=== PATIENT | male | born 1945 | race African-American/Black ===

== ENCOUNTER 2016-11-16 04:35 | Inpatient (IN) ==
[2016-11-09 09:07] LABS: MANUAL DIFF NEEDED? NO
[2016-11-09 09:12] LABS: BASO% 0.1 % (0.0-0.8); EOS# 0.09 X1000 (0.0-0.7); EOS% 1.1 % (0.0-10.0); HEMATOCRIT 47.9 % (42.0-52.0); HEMOGLOBIN 16.7 g/dL (14.0-18.0); IMM GRAN# 0.02 X1000 (0.0-0.04); IMM GRAN% 0.3 % (0.0-0.5); LYMPH# 1.04 X1000 (1.2-3.4); MCH 31.8 PG (27-31); MCHC 34.9 g/dL (33-37); MCV 91.2 FL (81-99); MONO# 0.78 X1000 (0.11-0.59); MONO% 9.8 % (1.7-9.3); MPV 9.9 FL (7.4-10.4); NEUT% 75.7 % (42.2-75.2); PLT 202 X1000 (130-400); RBC 5.25 XMIL (4.7-6.1)
[2016-11-09 09:26] LABS: INR 1.39; PROTIME 14.9 Seconds (9.2-11.7)
[2016-11-09 09:28] LABS: PTT 40.9 Seconds (22.0-36.0)
[2016-11-09 09:30] LABS: BUN 13 mg/dL (8-22); TCO2 30 mmol/L (25-35)
[2016-11-09 09:42] LABS: CHLORIDE 100 mmol/L (98-107); POTASSIUM 5.1 mmol/L (3.5-5.1); SODIUM 141 mmol/L (136-145)
[2016-11-09 09:49] LABS: AGAP 11; COSMO 282
--- NOTE | 2016-11-09 11:48 | EKG Report ---
Test Performed on : 11/09/2016 08:22:05 AM Test Reason : ORDER Blood Pressure : / mmHG Vent. Rate : 078 BPM Atrial Rate : 241 BPM P-R Int : 000 ms QRS Dur : 090 ms QT Int : 366 ms P-R-T Axes : 000 069 030 degrees QTc Int : 417 ms Atrial fibrillation. Abnormal ECG When compared with ECG of 13-SEP-2013 14:24, No significant change was found Confirmed by Froylan MERCADO, Yaw Hunt ([id number]) on 11/09/2016 2:56:23 PM
[2016-11-16] MEDS ORDERED: LYRICA ONE (09:34)
[2016-11-16] MEDS ORDERED: REGLAN ONE (09:34)
[2016-11-16] MEDS ORDERED: PEPCID ONE (09:34)
[2016-11-16] MEDS ORDERED: COLACE ONE (09:34)
[2016-11-16] MEDS ORDERED: LR 1,000 ML ONE (09:35)
[2016-11-16] MEDS ORDERED: CELEBREX ONE (09:35)
[2016-11-16] MEDS ORDERED: KEFZOL 2 GM/D5W 2 GM/50 ML IVPB ONE (09:35)
[2016-11-16] MEDS ORDERED: DIPRIVAN 1% ONE ×2 (11:54→13:42)
[2016-11-16] MEDS ORDERED: VERSED ONE (12:16)
[2016-11-16] MEDS ORDERED: FENTANYL ONE (12:17)
[2016-11-16] MEDS ORDERED: DECADRON ONE (12:39)
[2016-11-16] MEDS ORDERED: ZOFRAN ONE (12:39)
[2016-11-16] MEDS ORDERED: OFIRMEV 1000 MG/ISOTONIC SOLN 1,000 MG/100 ML BOTTLE ONE (12:39)
[2016-11-16 14:27] LABS: URINE CULTURE NEEDED? NO; URINE MICRO REVIEW NEEDED? NO; URINE SOURCE CATH
[2016-11-16 14:32] LABS: BILIRUBIN URINE NEGATIVE (NEGATIVE); BLOOD URINE NEGATIVE (NEGATIVE); COLOR YELLOW; GLUCOSE URINE NEGATIVE (NEGATIVE); LEUKOCYTES URINE NEGATIVE (NEGATIVE); NITRITE URINE NEGATIVE (NEGATIVE); PROTEIN URINE NEGATIVE (NEGATIVE); SP GRAVITY URINE 1.018; TURBIDITY URINE CLEAR (CLEAR); UR EPITHELIAL CELLS <10 /HPF (<10); URINE BACTERIA NEGATIVE /HPF; URINE RBC <10 /HPF (<10); URINE WBC <10 /HPF (<10); UROBILINOGEN URINE NORMAL (NORMAL)
[2016-11-16] MEDS ORDERED: NEOSPORIN G.U. IRRIGANT ONE (15:24)
[2016-11-16] MEDS ORDERED: CYKLOKAPRON 1,000 MG/NS 1,000 MG/100 ML IVPB ONE ×2 (15:24→15:25)
[2016-11-16] MEDS ORDERED: MARCAINE 0.25% PF/EPI 1:200,000 ONE (15:24)
[2016-11-16] MEDS ORDERED: VANCOMYCIN ONE (15:24)
[2016-11-16] MEDS ORDERED: SODIUM CHLORIDE 0.9% ONE (15:24)
[2016-11-16] MEDS ORDERED: DURAMORPH ONE (15:24)
[2016-11-16] MEDS ORDERED: TORADOL ONE (15:24)
[2016-11-16] MEDS ORDERED: EXPAREL 1.3% ONE (15:24)
[2016-11-16] MEDS ORDERED: MORPHINE IV PRN (16:41)
[2016-11-16] MEDS ORDERED: ZOFRAN PO PRN (16:45)
[2016-11-16] MEDS ORDERED: MILK OF MAGNESIA PO PRN (16:45)
--- NOTE | 2016-11-16 18:20 | Diag Imaging Result Doc PS360 ---
KNEE 1-2 VIEWS-RIGHT - 11/16/2016 INDICATION: right total knee TECHNIQUE: Two views COMPARISON: None FINDINGS: There is a right total knee arthroplasty. Alignment is anatomic. No hardware fracture or loosening. IMPRESSION: No complication. Electronically signed by Jamey Hernandez 11/16/2016 6:18 PM
[2016-11-16] MEDS: NS 1,000 ML IV SCH (19:02)
[2016-11-16] MEDS: TYLENOL PO SCH ×2 (19:03→23:02)
[2016-11-16] MEDS: KEFZOL 2 GM/D5W 2 GM/50 ML IVPB IV SCH (19:59)
[2016-11-16] MEDS: PERIDEX MT SCH (20:00)
[2016-11-16] MEDS: CARDIZEM CD PO SCH (20:00)
[2016-11-16] MEDS: COLACE PO SCH (20:00)
[2016-11-17] MEDS: OXY IR PO PRN ×3 (01:41→20:57)
[2016-11-17] MEDS: NS 1,000 ML IV SCH (04:00)
--- NOTE | 2016-11-17 04:21 | OPERATIVE NOTE ---
PROCEDURE DATE: 11/16/2016 PREOPERATIVE DIAGNOSIS: Degenerative arthritis of the right knee. POSTOPERATIVE DIAGNOSIS: Degenerative arthritis of the right knee. PROCEDURE: Right total knee arthroplasty with a DePuy Attune size 5 posterior stabilized femur, a size 6 tibial tray, a 6 mm rotating platform tibial insert, and a 35 mm medialized anatomic patella. SURGEON: Curt Ashraf MD BIBLE WORKER: BRANDEN Owens [employer] PORTAL DEVELOPER: BRANDEN Chawla ANESTHESIA: Spinal IV FLUIDS: 2900 mL of lactated Ringer's. ESTIMATED BLOOD LOSS: 50 mL. TOURNIQUET TIME: 100 minutes at 350 mmHg. COMPLICATION: None INDICATION: This is a 71-year-old male with chronic history of worsening pain and discomfort of his right knee with continued pain and discomfort despite appropriate nonoperative treatment. X- rays revealed significant degenerative arthritis. Recommendation to proceed with right total knee arthroplasty was offered. Risks and benefits of surgery were explained, including the risks of anesthesia, , bleeding, infection, failure to relieve pain, postoperative stiffness, nerve injury, blood clots, and other imponderables. All questions were answered. The patient and family wished to proceed with surgery. DETAILS OF OPERATION: The patient was taken to the operating room, placed supinely on the operating table. Once adequate anesthesia was obtained, patient's right lower extremity was subsequently prepped and draped in the usual sterile fashion. Esmarch was used to exsanguinate the right lower extremity. The tourniquet was inflated to 350 mmHg. A standard anterior incision made with a skin knife. Medial and lateral skin envelopes were developed. Standard medial parapatellar arthrotomy was then performed. Patella fat pad was excised. Superior tractors then placed. Approximately 1 cm anterior to the PCL insertion, a starting reamer was passed. An intramedullary guide with a distal femoral cutting block was pinned in position. Distal femoral cut was then performed. The sizing block was placed and measured size 5. Corresponding pins were placed. Anterior, posterior, and chamfer cuts were then made. Attention was then turned to the proximal tibia. Further resection of the ACL and PCL was performed. Using the extramedullary guide, the proximal tibia cutting block was pinned in position. Had good alignment confirmed with the alignment alina. The proximal tibia was then resected. Medial and lateral menisci were excised. A curved osteotome was used to remove the posterior osteophytes off the distal femur. A spacer block was placed and had good soft tissue balance in both flexion and extension. A spacer block was placed and had good soft tissue balance in both flexion and extension. Attention was then turned to the proximal tibia where the size 6 tibial tray appeared be correct size. This was pinned in position. This followed by a central reamer and a fin punch. A box cutting guide was placed on the distal femur. A box cut was performed. A trial femoral component was then placed and had good soft tissue balancing with the tibial insert. The patella had been the everted and resected in standard fashion. A 35 appeared to be the correct size. The holes were drilled. The patella had good patellofemoral tracking. The components were then removed. Copious irrigation was then performed with antibiotic pulsatile lavage while vancomycin was mixed with cement on the back table. Sequential cementing was then performed, first with the tibial tray. Excess cement was removed with a Hewitt, followed by the femoral component. Excess cement with a Hewitt, followed by the trial tibial insert in full extension. Axial loading was maintained while cement cured. Patella was cemented in standard fashion. Patella clamp was placed. Exparel was placed in deep soft tissue, as well subcutaneous tissue while the cement was curing. After the cement had cured, the 6 mm rotating platform tibial insert appeared to be the correct size. The trial insert was removed. Exparel was placed in the deep posterior capsule. The wound was copiously irrigated with antibiotic pulsatile lavage and this was followed by a 6 mm rotating platform tibial insert. Had good soft tissue balance and good patellofemoral tracking. A 1/8 Hemovac drain was placed and was not sewn in. Copious irrigation was then performed once again with antibiotic pulsatile lavage. Number 1 Vicryl was used to repair the arthrotomy, followed by 2-0 Vicryl to repair the subcutaneous tissue, and skin hayley. Adaptic, sterile 4 x 4, Webril, cryounit, and Ladarius wrap was applied to the right lower extremity. The patient tolerated the procedure well with no complications. Transferred to recovery room in stable condition. cc: Curt Ashraf MD MTDMargie
[2016-11-17] MEDS: TYLENOL PO SCH ×4 (05:53→23:28)
[2016-11-17] MEDS: KEFZOL 2 GM/D5W 2 GM/50 ML IVPB IV SCH (05:54)
[2016-11-17 06:25] LABS: HEMATOCRIT 41.9 % (42.0-52.0); HEMOGLOBIN 14.7 g/dL (14.0-18.0)
[2016-11-17 06:48] LABS: AGAP 12; BUN 12 mg/dL (8-22); CALCIUM 8.6 mg/dL (8.8-10.2); CHLORIDE 103 mmol/L (98-107); COSMO 275; POTASSIUM 4.8 mmol/L (3.5-5.1); SODIUM 137 mmol/L (136-145); TCO2 22 mmol/L (25-35)
--- NOTE | 2016-11-17 07:36 | PROGRESS NOTE ---
DATE: 11/17/2016 SUBJECTIVE: Patient is a pleasant, 71-year-old male who is 1 day status post right total knee arthroplasty. The patient is currently resting comfortably. PHYSICAL EXAMINATION: Patient is awake, alert, and cooperative with the exam. Right lower extremity dressing is intact. Calf is soft. He is neurovascularly distally. He has active dorsiflexion and plantarflexion. LABORATORY DATA: His hemoglobin and hematocrit are pending. IMPRESSIONS: Postoperative day #1 status post right total knee arthroplasty. PLAN: At this point, discontinue his drain and Richards, and change his dressing and Hep-Lock his IV. We will mobilize with physical therapy. care services manager have been consulted for discharge planning. cc: Curt Ashraf MD
[2016-11-17] MEDS: XARELTO PO SCH (08:37)
[2016-11-17] MEDS: BENICAR PO SCH (08:38)
[2016-11-17] MEDS: CARDIZEM CD PO SCH (08:38)
[2016-11-17] MEDS: HYDROCHLOROTHIAZIDE PO SCH (08:38)
[2016-11-17] MEDS: ALDACTONE PO SCH (08:38)
[2016-11-17] MEDS: COLACE PO SCH ×2 (08:38→20:54)
[2016-11-17] MEDS: LANOXIN PO SCH (08:39)
[2016-11-17] MEDS: PEPCID PO SCH (08:39)
[2016-11-17] MEDS: PERIDEX MT SCH ×2 (12:04→20:54)
[2016-11-18] MEDS: CARDIZEM CD PO SCH ×2 (01:34→09:08)
[2016-11-18] MEDS: TYLENOL PO SCH (06:03)
[2016-11-18 06:10] LABS: HEMATOCRIT 38.8 % (42.0-52.0); HEMOGLOBIN 13.6 g/dL (14.0-18.0)
[2016-11-18] MEDS ORDERED: BACITRACIN OINTMENT TOP PRN (06:34)
[2016-11-18 07:23] VITALS: BP 109/75
--- NOTE | 2016-11-18 07:49 | PROGRESS NOTE ---
DATE: 11/18/2016 SUBJECTIVE: The patient is a pleasant 71-year-old male who is 2 days status post right total knee arthroplasty. He is currently resting comfortably. He has no complaints. OBJECTIVE: On physical examination, the patient's right lower extremity wound looks good. There are no signs or symptoms of infection. He has expected swelling. Compartments are soft. He is neurovascularly distally. He has active dorsiflexion and plantar flexion. His hemoglobin is 13.6, hematocrit is 38.8. IMPRESSION: Postop day #2 status post right total knee arthroplasty. PLAN: At this point, we will plan on discharging the patient home. He will receive home physical therapy. He will follow up in the office on 11/29/2016. cc: Curt Ashraf MD
[2016-11-18] MEDS: PEPCID PO SCH (09:06)
[2016-11-18] MEDS: XARELTO PO SCH (09:06)
[2016-11-18] MEDS: HYDROCHLOROTHIAZIDE PO SCH (09:06)
[2016-11-18] MEDS: LANOXIN PO SCH (09:07)
[2016-11-18] MEDS: BENICAR PO SCH (09:08)
[2016-11-18] MEDS: PERIDEX MT SCH (09:08)
[2016-11-18] MEDS: ALDACTONE PO SCH (09:09)
[2016-11-18] MEDS: COLACE PO SCH (09:09)
[2016-11-18] MEDS: OXY IR PO PRN (09:36)
== END 2016-11-18 10:37 | disposition home health service (06) ==
LOC: SURHOLD 04:35 → 4N 16:17
PROVIDERS: ADMIT Orthopaedic Surgery Adult Reconstructive Orthopaedic Surgery; ATTEND Orthopaedic Surgery Adult Reconstructive Orthopaedic Surgery

== ENCOUNTER 2016-12-09 14:08 | Observation (INO) ==
--- NOTE | 2016-12-09 14:48 | EKG Report ---
Test Performed on : 12/09/2016 2:41:56 PM Test Reason : CHEST PAIN Blood Pressure : / mmHG Vent. Rate : 108 BPM Atrial Rate : 187 BPM P-R Int : 000 ms QRS Dur : 086 ms QT Int : 318 ms P-R-T Axes : 000 062 028 degrees QTc Int : 426 ms Atrial fibrillation. with rapid ventricular response. Nonspecific T wave abnormality Abnormal ECG When compared with ECG of 09-NOV-2016 08:22, Non-specific change in ST segment in Anterior leads Nonspecific T wave abnormality now evident in Anterior leads Unconfirmed Result
[2016-12-09 15:15] LABS: MANUAL DIFF NEEDED? NO
[2016-12-09 15:19] LABS: BASO% 0.2 % (0.0-0.8); EOS# 0.02 X1000 (0.0-0.7); EOS% 0.4 % (0.0-10.0); HEMATOCRIT 32.5 % (42.0-52.0); HEMOGLOBIN 11.3 g/dL (14.0-18.0); IMM GRAN# 0.01 X1000 (0.0-0.04); IMM GRAN% 0.2 % (0.0-0.5); LYMPH% 12.6 % (20.5-51.1); MCH 32.1 PG (27-31); MCHC 34.8 g/dL (33-37); MCV 92.3 FL (81-99); MONO# 0.74 X1000 (0.11-0.59); MONO% 13.4 % (1.7-9.3); MPV 8.4 FL (7.4-10.4); NEUT% 73.2 % (42.2-75.2); PLT 248 X1000 (130-400); RBC 3.52 XMIL (4.7-6.1)
--- NOTE | 2016-12-09 15:28 | Diag Imaging Result Doc PS360 ---
EXAM: CHEST-2 VIEWS INDICATION: CP TECHNIQUE: 2 views COMPARISON: 09/13/2013 FINDINGS: There is stable elevation of the right hemidiaphragm. There is stable minimal left basilar scarring versus atelectasis. The lungs are grossly clear, otherwise. There is no discrete pleural fluid collection or pneumothorax. The cardiomediastinal silhouette and central vasculature are grossly unremarkable. There is stable thoracic spondylosis. IMPRESSION: Stable chest with no definite acute pathology. Electronically signed by Berry Guerrero 12/09/2016 3:25 PM
[2016-12-09 15:33] LABS: AGAP 11; ALBUMIN 4.4 g/dL (3.5-5.0); ALKALINE PHOSPHATASE 101 U/L (32-122); BUN 12 mg/dL (8-22); CALCIUM 9.9 mg/dL (8.8-10.2); CHLORIDE 93 mmol/L (98-107); CK PROFILE 76 U/L (24-204); COSMO 263; GOT 20 U/L (10-34); GPT 27 U/L (10-44); MAGNESIUM 2.2 mg/dL (1.5-2.7); POTASSIUM 4.3 mmol/L (3.5-5.1); SODIUM 131 mmol/L (136-145); TCO2 27 mmol/L (25-35); TOTAL PROTEIN 7.6 g/dL (6.3-8.3)
[2016-12-09 15:39] LABS: INR 1.89 (0.86-1.15); PROTIME 21.9 Seconds (12.1-15.5)
[2016-12-09 15:40] LABS: PTT PL 39.1 Seconds (22.6-43.9)
[2016-12-09] MEDS ORDERED: NS 1,000 ML IV ONE (17:42)
[2016-12-09] MEDS: NS 1,000 ML IV SCH (18:18)
--- NOTE | 2016-12-09 18:43 | Diag Imaging Result Doc PS360 ---
ANGIOGRAM/PULMONARY ARTERIES - 12/09/2016 INDICATION: chest pain TECHNIQUE: Axial CT images were obtained after administering intravenous contrast. Coronal MIP images were generated. A CT dose reduction protocol was used. COMPARISON: None FINDINGS: There is no pulmonary embolism. Heart and great vessels are normal. There are numerous cysts of the liver. No liver masses. Otherwise upper abdominal images are normal. The lungs are clear. There are moderate degenerative changes of the spine. No acute or suspicious bony lesion. IMPRESSION: No acute disease. Electronically signed by Jamey Hernandez 12/09/2016 6:41 PM
[2016-12-09] MEDS: ZOFRAN IV PRN (20:00)
[2016-12-09] MEDS ORDERED: COLACE PO PRN (20:13)
[2016-12-09] MEDS ORDERED: OXY IR PO PRN (20:13)
[2016-12-09] MEDS: XARELTO PO SCH (21:17)
[2016-12-09] MEDS: ZYVOX PO SCH (21:17)
[2016-12-09] MEDS: TYLENOL PO PRN (22:55)
[2016-12-10] MEDS: TYLENOL PO PRN ×2 (05:11→21:45)
[2016-12-10 06:14] LABS: HEMATOCRIT 28.2 % (42.0-52.0); HEMOGLOBIN 9.5 g/dL (14.0-18.0); MCH 31.4 PG (27-31); MCHC 33.7 g/dL (33-37); MCV 93.1 FL (81-99); MPV 9.1 FL (7.4-10.4); RBC 3.03 XMIL (4.7-6.1)
[2016-12-10 06:34] LABS: AGAP 9; ALBUMIN 3.6 g/dL (3.5-5.0); ALKALINE PHOSPHATASE 83 U/L (32-122); BUN 11 mg/dL (8-22); CALCIUM 9.2 mg/dL (8.8-10.2); CHLORIDE 98 mmol/L (98-107); COSMO 268; GOT 16 U/L (10-34); GPT 22 U/L (10-44); MAGNESIUM 2.2 mg/dL (1.5-2.7); POTASSIUM 4.2 mmol/L (3.5-5.1); SODIUM 134 mmol/L (136-145); TCO2 27 mmol/L (25-35); TOTAL PROTEIN 6.4 g/dL (6.3-8.3)
[2016-12-10 06:37] LABS: FREE T4 1.59 ng/dL (0.93-1.70)
[2016-12-10] MEDS: ZOFRAN IV PRN (07:18)
[2016-12-10] MEDS: CARDIZEM CD PO SCH (08:15)
[2016-12-10] MEDS: NS 1,000 ML IV SCH ×2 (08:15→22:39)
[2016-12-10] MEDS: ZYVOX PO SCH ×2 (08:15→20:21)
[2016-12-10] MEDS ORDERED: ALDACTONE PO SCH (09:00)
[2016-12-10] MEDS ORDERED: LANOXIN PO SCH ×2 (09:00)
[2016-12-10 10:00] LABS: AGAP 10; ALBUMIN 3.6 g/dL (3.5-5.0); ALKALINE PHOSPHATASE 82 U/L (32-122); BUN 10 mg/dL (8-22); CHLORIDE 97 mmol/L (98-107); COSMO 265; GOT 16 U/L (10-34); GPT 21 U/L (10-44); MAGNESIUM 2.1 mg/dL (1.5-2.7); POTASSIUM 4.1 mmol/L (3.5-5.1); SODIUM 132 mmol/L (136-145); TCO2 25 mmol/L (25-35); TOTAL PROTEIN 6.2 g/dL (6.3-8.3)
[2016-12-10 10:01] LABS: HEMATOCRIT 27.9 % (42.0-52.0); HEMOGLOBIN 9.4 g/dL (14.0-18.0); MCH 31.2 PG (27-31); MCHC 33.7 g/dL (33-37); MCV 92.7 FL (81-99); MPV 8.8 FL (7.4-10.4); RBC 3.01 XMIL (4.7-6.1)
--- NOTE | 2016-12-10 15:12 | CONSULTATION ---
DATE OF CONSULTATION: 12/10/2016 INDICATION FOR THE CONSULTATION: Atrial fibrillation. HISTORY OF PRESENT ILLNESS: Mr. Encarnacion is a 71-year-old black male with a history of chronic atrial fibrillation normally followed by Dr. Camacho. Around 1 month ago he had a total knee replacement and has been progressing from a PT standpoint at a reasonable rate. Apparently he was in rehab or either had a home health nurse come out who noted he had a blood pressure drop when he stood up as well as a heart rate elevation. The patient has had relatively poor p.o. intake due to some relative nausea. In addition, he has had poor solid and liquid oral intake. He has been compliant with all his medications. He has not had any heart racing, palpitations or orthopnea. No nausea, vomiting or diuresis. No fevers. PAST MEDICAL HISTORY: Significant for. 1. Chronic atrial fibrillation. 2. Hypertension. 3. Recent knee replacement. SOCIAL HISTORY: is present at bedside. No current tobacco use. FAMILY HISTORY: Hypertension. REVIEW OF SYSTEMS: A 10 system review of systems is negative except for those things mentioned in HPI. PHYSICAL EXAMINATION: Vital signs: Afebrile. His heart rates have been in the low 100 for the course of this hospitalization. Blood pressure 101/64. He has not had any orthostatics done during this hospitalization. General: No acute distress. HEENT: Oropharynx is moist. Normal dentition. Cardiovascular: He is in an irregularly irregular rate controlled rhythm right now. He has no murmurs, no S3, no lower extremity edema. Chest: Clear bilaterally. No increased work of breathing. Abdomen: Soft, nontender, nondistended. No obvious organomegaly. Skin Exam: Warm and dry throughout without any rashes. Neurological: Moving all extremities well. Cranial nerves 2-12 are intact without any sensation deficits. Psychiatric: Alert and oriented, pleasant. He has a normal mood and affect. PERTINENT DATA: He had a pulmonary arteriogram demonstrating no evidence of acute findings. He had a EKG demonstrating atrial fibrillation with mild rapid ventricular response with a rate of 108 beats per minute. Nonspecific diffuse ST-T changes. Chest x-ray demonstrated no acute chest pathology. Laboratory data shows white count of 4.3, hematocrit 27.9, platelet count is 211,000. Sodium 132, potassium 4.1, BUN is 10, creatinine is 1. Cardiac enzymes negative. ProBNP yesterday was 686. Digoxin level 0.8. ASSESSMENT: 1. Relative hypotension with hyponatremia with poor p.o. intake and a 10 pound weight loss in the last month. 2. Chronic atrial fibrillation. PLAN: I do not believe his atrial fibrillation is playing a role in his symptomatology. He has had atrial fibrillation for a number years and his low rapid ventricular rate in the low 100s should not be causing symptomatology. More likely his weight loss has resulted in his symptoms of lightheadedness and blood pressure drops. In addition, he is probably mildly volume depleted secondary to his continued use of a diuretic in the setting of poor oral intake. His symptoms may be attributed to his pain medications as he is experiencing some mild nausea causing him to not eat well. I would recommend discontinuation of the Aldactone for now and possible resumption as an outpatient later. I would keep his diltiazem and digoxin dosing as per his previous home dosing. I would continue on Xarelto. Please contact us if we can be of further assistance. cc: MD Tom Hector MD
--- NOTE | 2016-12-10 15:34 | PROGRESS NOTE ---
DATE: 12/10/2016 SUBJECTIVE: Patient notes that he is feeling fine but he has been lying in the bed since admission last night. He has not been up moving about. States he does get a little winded when he walks to the restroom. Denies any chest pain. States that he does feels his heart racing at times. Denies any headaches, blurred vision, change in vision. Denies any GI or issues otherwise. OBJECTIVE: Vital Signs: Reviewed. Temperature 97 degrees, pulse 102, respiratory 101/64. General: Patient awake alert, oriented. He is currently in no respiratory distress. Pleasant to talk with. Neck: Supple. Cardiovascular: Irregular rate, irregular rhythm. Chest clear. Nonlabored. Abdomen: Soft. Extremities: Moves all extremities. Neurologic: No changes. Skin: Warm and dry. No rashes. LABS: Reviewed. ASSESSMENT: 1. Elevated D-dimer. Ultrasound of the lower extremities is still pending. CTA was negative of his chest for pulmonary emboli. Most likely his D-dimer is elevated secondary to his recent knee surgery. 2. Atrial fibrillation with rapid ventricular response. Heart rate is still elevated. Digoxin was increased this morning. 3. Hypertension. Blood pressures are a little bit better controlled. Will consider holding his Benicar. PLAN: Will consult Cardiology and discuss with them options for his heart rate control. cc: Tom Whitmore MD
--- NOTE | 2016-12-10 16:05 | HISTORY AND PHYSICAL ---
CHIEF COMPLAINT: Palpitations. HISTORY OF PRESENT ILLNESS: Patient is a 71-year-old male, who has a known history of atrial fibrillation for which he is on diltiazem, digoxin and Xarelto at home. He recently had knee surgery several weeks ago and started to feel a little bit stronger and was trying to get out and do things. However today he noted a sudden onset of increased weakness, tiredness, fatigue. Noted he was unable to carry out his regular activities and had to sit down. His family made him come to the ER. Denies any chest pain. States that his heart was racing but he thought it was because he was so tired. Denies any fever. ALLERGIES: No known drug allergies. MEDICATIONS: Xarelto 20, diltiazem 240 b.i.d., Losartan HCT 40/25, spironolactone 25, B12, digoxin 125 mcg, tramadol p.r.n., Colace. REVIEW OF SYSTEMS: The patient denies palpitations but does note that his heart started racing this afternoon. Denies any fevers, chills, cough, congestion. Denies any dysuria, frequency, urgency. Denies any hesitancy, polyuria, polydipsia. Denies any skin rashes, weight loss or weight gain. States that since his knee surgery he has been more tired but noted an increase today. Denies any dysuria or frequency. PAST MEDICAL HISTORY: Atrial fibrillation, hypertension, hyperlipidemia. He recently had knee replacement surgery on his right knee. FAMILY HISTORY: Noncontributory. SOCIAL HISTORY: Patient lives at home. He is . He is retired. Has 1 adult child. Does not smoke or drink. PHYSICAL: Temp 98 degrees, pulse 124, respiratory 18, BP 115/76 to 101/70, sat 98% on room air.General: The patient is awake, alert, oriented. He is currently in no real respiratory distress. Speech is regular. Memory is intact. Neck: Supple. Cardiovascular: Irregular rate, irregular rhythm. Chest: Clear. Nonlabored. No wheezing. Extremities: Moves all extremities. Neurologic: No focal neurological changes. Skin: Warm and dry. No rashes. LABS: CBC normal. CMP normal with the exception of sodium 131, glucose 108. Digoxin level was low at 0.8. Chest x-ray clear. EKG atrial fibrillation with rapid ventricular response. ASSESSMENT: 1. Elevated D-dimer of undetermined significance. Certainly could be a pulmonary emboli, although he is not hypoxic nor short of breath. He has recently had a knee surgery but he has been taken Xarelto with the exception of the 5 days pre surgery washout time frame. We will check ultrasound of bilateral lower extremities. We will check a CTA of his chest. 2. Atrial fibrillation with rapid ventricular response. Patient currently is on diltiazem, Benicar and digoxin. Digoxin level is actually low. We will attempt to increase this. If that does not control his heart rate certainly will back off the Benicar and increase rate control medications. 3. Hyponatremia. Will follow. 4. Volume depletion. Patient by his own admission notes that he has not been eating very well recently. He certainly has not been drinking well because his knee has been hurting and did not want have to get up and go to the restroom. PLAN: Will consult Cardiology. Will continue his home medications with the exception of digoxin will increase to 250. We will check ultrasound, CTA and follow. cc: Tom Whitmore MD
[2016-12-10] MEDS: XARELTO PO SCH (17:11)
[2016-12-11] MEDS: LANOXIN PO SCH (08:06)
[2016-12-11] MEDS: CARDIZEM CD PO SCH (08:06)
[2016-12-11] MEDS: ZYVOX PO SCH ×3 (08:06→21:20)
[2016-12-11] MEDS ORDERED: NS 500 ML IV ONE (10:03)
[2016-12-11] MEDS: ZOFRAN IV PRN (11:46)
--- NOTE | 2016-12-11 15:02 | PROGRESS NOTE ---
DATE: 12/11/2016 SUBJECTIVE: The patient still states he is quite tired fatigued. Notes that he was feeling okay lying quietly in the bed. When he got up to go to the restroom had sudden onset of increased tiredness, increased fatigue, noted that his heart rate jumped into the 130s, 150s. After lying back down states he is feeling a little bit better at the present time. PHYSICAL: Vital signs: Temperature 97, pulse 105, respiratory 18, BP 139/74, saturation 100% on room air. General: Patient is awake, alert, currently in no real respiratory distress. HEENT: Normocephalic, atraumatic. ADAM. Neck: Supple. Cardiovascular: Irregular rate, irregular rhythm. Chest: Clear. Abdomen: Soft. Extremities: Moves all extremities. Neuro: No changes. LABS: Reviewed. ASSESSMENT: 1. Atrial fibrillation with rapid ventricular response currently in the 130s. 2. Volume depletion. Appears improving. 3. General deconditioning. 4. Knee pain. 5. Hypertension. PLAN: Certainly agree with stopping patient's spironolactone. He has been intentionally not drinking and eating secondary to his knee pain. He has lost several pounds since his knee surgery but I think this is more intentional than anything else. He has generalized deconditioning. Will discuss with cardiology, Dr. Roca whether increasing his Cardizem would be effective. We will continue to watch. cc: Tom Whitmore MD
--- NOTE | 2016-12-11 17:33 | PROGRESS NOTE ---
DATE: 12/11/2016 SUBJECTIVE: Mr. Encarnacion reports he continues to be somewhat dyspneic on exertion. His heart rate is noted to be somewhat elevated when he exerts himself but at rest he is in the 90s to low 100s. PHYSICAL EXAMINATION: Vital signs: He is afebrile. Heart rate presently is in the low 100s. Blood pressure 125/77. General: No acute distress. HEENT: Oropharynx is moist. Normal dentition. Cardiovascular: He is in an irregularly irregular rate. Relatively well controlled rhythm. He has no lower extremity edema. Chest: Clear to auscultation bilaterally. He has no increased work of breathing. Abdomen: Soft, nontender, nondistended. He has no obvious organomegaly. PERTINENT DATA: He has no recent laboratory data other than chemistries that were reviewed yesterday. ASSESSMENT: Atrial fibrillation. PLAN: His rate is reasonably controlled but I believe secondary to deconditioning and weight loss over the last month, he has a significant rate elevation with any sort of ambulation. I will increase his diltiazem to 180 mg. his Aldactone has already been held. I would continue with current medications with the adjustments as listed above. I have urged him to continue to eat and to continue to ambulate and continue with his physical therapy at home. I do not have any further recommendations for this patient. cc: MD Tom Hector MD
[2016-12-11] MEDS: XARELTO PO SCH (17:42)
[2016-12-11] MEDS: TYLENOL PO PRN (21:39)
[2016-12-12] MEDS: TYLENOL PO PRN ×2 (04:14→09:46)
[2016-12-12 08:08] VITALS: BP 133/81
[2016-12-12] MEDS ORDERED: CARDIZEM CD PO SCH (09:00)
[2016-12-12] MEDS: LANOXIN PO SCH (09:15)
[2016-12-12] MEDS: ZYVOX PO SCH (09:15)
--- NOTE | 2016-12-12 15:02 | Extremity Venous Study ---
EXAM: Venous U/S Bilateral Legs - 12/10/2016 HISTORY: elevated D Dimer TECHNIQUE: Bilateral lower extremity Doppler venous ultrasound COMPARISON: None. FINDINGS: The deep veins of the bilateral lower extremities demonstrate flow and compressibility. There are no filling defects identified. There is a possible 3.6 cm in maximum dimension lobulated complex or complicated cystic lesion noted at the right popliteal fossa. IMPRESSION: No evidence of deep venous thrombosis in either lower extremity. Electronically signed by Alberto Hanson 12/12/2016 3:00 PM
--- NOTE | 2016-12-13 09:30 | DISCHARGE SUMMARY ---
ADMISSION DATE: 12/09/2016 DISCHARGE DATE: 12/12/2016 DISCHARGE DIAGNOSES: 1. Atrial fibrillation with rapid ventricular response, improved. 2. Adult failure to thrive secondary to inactivity. 3. Deconditioning. 4. Recent knee surgery with resultant pain, right knee. 5. Hypertension. 6. Volume depletion, resolved. CONSULTATION: Dr. Roca PROCEDURES: None. BRIEF HOSPITAL COURSE: Patient is a 71-year-old male who recently had knee surgery. Through his own admission, he has not been eating and drinking well secondary to the pain in the knee. He did not want to have to get up and go to the restroom or go to the kitchen. This created a relative volume depletion as well physical deconditioning. He certainly is having some elevated heart rate secondary to the deconditioning, and this is not improved by his known chronic atrial fibrillation. Thankfully, the patient had an uneventful hospital course. His digoxin remained at 125. His diltiazem was increased from 120-180 which he tolerated well. He will continue Zyvox as previously prescribed. He currently is on Xarelto and will continue this. He will follow up in the office in 1-2 weeks. I discussed with him that he certainly needs to consider rehab physical therapy. He needs to continue to push himself to get stronger. The patient notes that he understands. He will follow up with Cardiology in 1-2 weeks as well. cc: Tom Whitmore MD
--- NOTE | 2016-12-14 19:30 | PROVIDER DOCUMENTATION ---
This chart was entered by Lizet Whittaker Scribe, acting as scribe for Tyler Grace MD. HPI-General Adult - General Chief Complaint: Weakness Stated Complaint: WEAK,TIRED Time Seen by Provider: 12/09/16 14:54 Source: patient Allergies/Adverse Reactions: Patient Allergies Allergy/AdvReac Type Severity Reaction Status Date / Time No Known Allergies Allergy Verified 11/10/16 07:55 Home Medications: Home Medication List Medication Instructions Recorded Confirmed Last Taken Type Rivaroxaban [Xarelto] 20 mg PO DAILY 12/12/12 11/16/16 11/11/16 History Diltiazem HCl [Diltiazem 24Hr Cd] 240 mg PO BID 09/13/13 11/16/16 11/16/16 07: 00 History Olmesartan/Hydrochlorothiazide 1 each PO DAILY 09/13/13 11/16/16 11/15/16 History [Benicar Hct 40-25 mg Tablet] Spironolactone 25 mg PO DAILY 09/13/13 11/16/16 11/16/16 07:00 History Cyanocobalamin (Vitamin B-12) 5,000 mcg PO DAILY 11/10/16 11/16/16 11/15/16 History [Vitamin B12] Digoxin 125 mcg PO DAILY 11/10/16 11/16/16 11/16/16 07:00 History Tramadol [Ultram] 50 mg PO Q6H PRN PRN 11/10/16 11/16/16 11/12/16 History Docusate Sodium [Colace] 100 mg PO BID #60 capsule 11/18/16 Unknown Rx - History of Present Illness -Gen Adult Nature of Presenting Problems: 71 yo M presents to the ER with complaint of feeling weak, tired, and nauseous x1 week. Had R knee replacement x3 weeks ago. States he got out of rehab a couple weeks ago. Onset/Duration: reports: 1 week ago Associated Symptoms: reports: fatigue, nausea, weakness. denies: fever/chills Review of Systems - Adult - REVIEW OF SYSTEMS - ADULT Constitutional: denies: chills, fever Eyes: reports: no symptoms reported Ears, Nose, Mouth & Throat: reports: no symptoms reported Cardiovascular: denies: chest pain, palpitations Respiratory: denies: cough, shortness of breath Gastrointestinal: reports: nausea. denies: abdominal pain, diarrhea, vomiting Genitourinary: reports: no symptoms reported Musculoskeletal: reports: no symptoms reported Integumentary: reports: no symptoms reported Neurological: denies: dizziness/vertigo, headache/migraines Psychiatric: reports: no symptoms reported Endocrine: reports: no symptoms reported Hematologic/Lymphatic: reports: no symptoms reported Allergic/Immunologic: reports: no symptoms reported All Other Systems: Reviewed and Negative Past History - Adult - PAST MEDICAL HISTORY-ADULT Review of Records: reports: Nursing Assessment Review, Medications Reviewed Cardiovascular: reports: A-Fib, HTN, hyperlipidemia - PRIOR SURGERIES/PROCEDURES Surgical/Procedure History: reports: recent surgery, joint replacement (R knee) - IMMUNIZATION STATUS Childhood Immunizations: See Nurse Assessment Flu Vaccine: See Nurse Assessment Physical Exam-General - PHYSICAL EXAM-ADULT Initial Vital Signs Reviewed: Yes - CONSTITUTIONAL General Appearance: alert, no apparent distress - EYES Eyes: PERRL/EOMI, pink conjunctivae - HEAD, EARS, NOSE, MOUTH & THROAT HENMT: normocephalic/atraumatic, normal ENT inspection, TMs normal, pharynx normal - NECK Neck: supple, normal inspection - RESPIRATORY Respiratory: no respiratory distress, no accessory muscle use - CARDIOVASCULAR Cardiovascular: normal peripheral pulses, tachycardia - GASTROINTESTINAL (ABDOMEN) Abdominal Exam: normal bowel sounds, non tender, soft - MUSCULOSKELETAL Back Exam: no CVA tenderness, no vertebral tenderness Extremity: normal range of motion. negative: tenderness - SKIN Integumentary: normal color, warm/dry, warm (R knee) - NEUROLOGIC Neurologic: grossly normal, no motor/sensory deficits - PSYCHIATRIC Psych/Mental Status: normal mood/affect, normal thought content, normal thought process, oriented x 3 Progress - PLAN OF CARE/RESULTS Progress/Plan/Lab Results: Vital Signs - 8 hr 12/09/16 14:20 Temperature 98.6 F Pulse Rate 124 H Respiratory Rate 18 Blood Pressure 115/76 O2 Sat by Pulse Oximetry 98 Orders Category Date Time Status Cardiac Monitoring DIRECTED Care 12/09/16 14:23 Active Saline Loc NOW Care 12/09/16 14:23 Active CHEST-2 VIEWS [RAD] Stat Exams 12/09/16 14:23 Ordered CBC WITH ELECTRONIC DIFF [HEME] Stat Lab 12/09/16 14:23 Ordered CK PROFILE [SP CHEM] Stat Lab 12/09/16 14:23 Ordered COMPREHENSIVE METABOLIC PANEL [CHEM] Stat Lab 12/09/16 14:[address] Ordered D-[address]ER [address] [COAG] Stat Lab 12/09/16 14:23 Ordered MAGNESIUM [CHEM] Stat Lab 12/09/16 14:23 Ordered PRO B-NATRIURETIC PEPTIDE Stat Lab 12/09/16 14:[address]IME WITH INR PL [COAG] Stat Lab 12/09/16 14:[address] [COAG] Stat Lab 12/09/16 14:23 Ordered TROPONIN T Stat Lab 12/09/16 14:23 Ordered EKG [EKG] Stat Ther 12/09/16 14:23 Draft Result Diagrams: 12/09/16 15:10 12/09/16 15:10 - EKG 1 Time of EKG reading by physician:: 14:41 EKG Read and Signed by:: Tyler Grace EKG Interpretation (*Must complete 3 of following elements*): Abnormal Rate: 108 Rhythm: a-fib with RVR [place]: normal QRS: normal AR Interval: normal ST Wave: non-specific ST changes - XRAY 1 XRAY Study: Chest Impression: Normal (stable chest with no acute pathology, per radiologist) - CONSULTS/PCP/HOSPITALIST Notification #1 *Consult/PCP/Hospitalist*: Dr. Roca (tamale maker) Time Discussed: 16:54 Reason/Comments: Advised to admit to hospitalist Consult Disposition: Admit #2 Consult: Dr. Whitmore Time Discussed: 17:25 Consult Disposition: Admit Departure - Departure Date of Disposition Decision: 12/09/16 Time of Disposition Decision: 17:32 DIAGNOSIS: Rapid atrial fibrillation, Weakness, Status post knee replacement Disposition: ADMITTED INPATIENT 09 Certified Medical Emergency: Emergent Condition: Stable Referrals and Follow-Ups: Tom Whitmore MD [Primary Care Provider] - - Critical Care Note This patient required my direct & personal management of CC.: No This chart was documented by the indicated scribe, (Lizet Whittaker Scribe) and accurately reflects the services I performed and decisions made by me, Tyler Grace MD, as attested by the provider's signature.
== END 2016-12-12 10:55 | disposition home health service (06) ==
LOC: P.MEDSURG 14:08 → P.ED 14:08
PROVIDERS: ADMIT Family Medicine; ATTEND Family Medicine

== ENCOUNTER 2019-09-08 20:48 | Inpatient (IN) ==
[2019-09-08] MEDS ORDERED: PROTONIX IV ONE (21:04)
[2019-09-08] MEDS ORDERED: G.I. COCKTAIL PO ONE (21:04)
[2019-09-08] MEDS ORDERED: NS 500 ML IV ONE (21:04)
[2019-09-08] MEDS ORDERED: PEPCID IV ONE (21:04)
[2019-09-08] MEDS ORDERED: SODIUM CHLORIDE 0.9% INJ ONE ×2 (21:05)
[2019-09-08 22:12] LABS: BASO# 0.02 X1000 (0.0-0.2); BASO% 0.1 % (0.0-0.8); EOS# 0.01 X1000 (0.0-0.7); EOS% 0.1 % (0.0-10.0); HEMATOCRIT 49.9 % (42.0-52.0); HEMOGLOBIN 17.1 g/dL (14.0-18.0); IMM GRAN# 0.04 X1000 (0.0-0.04); IMM GRAN% 0.3 % (0.0-0.5); LYMPH# 0.81 X1000 (1.2-3.4); LYMPH% 5.3 % (20.5-51.1); MCH 30.7 PG (27-31); MCHC 34.3 g/dL (33-37); MCV 89.6 FL (81-99); MONO# 0.69 X1000 (0.11-0.59); MONO% 4.5 % (1.7-9.3); MPV 10.1 FL (7.4-10.4); NEUT# 13.69 X1000 (1.4-6.5); NEUT% 89.7 % (42.2-75.2); PLT 182 X1000 (130-400); RBC 5.57 XMIL (4.7-6.1); RDW 15.2 % (11.5-14.5); WBC 15.26 X1000 (4.8-10.8)
[2019-09-08 22:14] LABS: URINE SOURCE CLEAN CATCH
[2019-09-08 22:21] LABS: BILIRUBIN URINE NEGATIVE (NEGATIVE); BLOOD URINE NEGATIVE (NEGATIVE); COLOR YELLOW; GLUCOSE URINE NEGATIVE (NEGATIVE); KETONE URINE 60 mg/dL (NEGATIVE); LEUKOCYTES URINE NEGATIVE (NEGATIVE); NITRITE URINE NEGATIVE (NEGATIVE); PROTEIN URINE 100 mg/dL (NEGATIVE); SP GRAVITY URINE 1.017; TURBIDITY URINE CLEAR (CLEAR); UR EPITHELIAL CELLS <10 /HPF (<10); URINE BACTERIA NEGATIVE /HPF; URINE RBC <10 /HPF (<10); URINE WBC <10 /HPF (<10); UROBILINOGEN URINE NORMAL (NORMAL)
[2019-09-08 22:29] LABS: AGAP 14; ALBUMIN 4.7 g/dL (3.5-5.0); ALKALINE PHOSPHATASE 78 U/L (32-122); BUN 10 mg/dL (8-22); CALCIUM 9.9 mg/dL (8.8-10.2); CHLORIDE 96 mmol/L (98-107); COSMO 278; CREATININE 0.8 mg/dL (0.7-1.2); ESTIMATED GFR > 60; GLUCOSE 152 mg/dL (70-104); GOT 16 U/L (10-34); GPT 16 U/L (10-44); MAGNESIUM 2.2 mg/dL (1.5-2.7); POTASSIUM 3.8 mmol/L (3.5-5.1); SODIUM 138 mmol/L (136-145); TCO2 28 mmol/L (25-35); TOTAL PROTEIN 7.5 g/dL (6.3-8.3)
--- NOTE | 2019-09-09 00:41 | PROVIDER DOCUMENTATION ---
This chart was entered by Rowena Terry Scribe, acting as scribe for Curt Hart MD. HPI-Abdominal Pain/GI Problem - General Chief Complaint: Nausea/Vomiting Stated Complaint: nausea, vomiting, bloating, abd pain Time Seen by Provider: 09/08/19 20:53 Source: patient Allergies/Adverse Reactions: Patient Allergies Allergy/AdvReac Type Severity Reaction Status Date / Time No Known Allergies Allergy Verified 09/08/19 20:53 Home Medications: Home Medication List Medication Instructions Recorded Confirmed Last Taken Type Rivaroxaban [Xarelto] 20 mg PO QHS 12/12/12 09/08/19 11/11/16 History Digoxin 125 mcg PO DAILY 11/10/16 09/08/19 11/16/16 07:00 History Diltiazem C.d. [Cardizem Cd] 240 mg PO BID 05/28/17 09/08/19 Unknown History Metoprolol [Lopressor] 50 mg PO DAILY 05/28/17 09/08/19 Unknown History Losartan Potassium 1 tab PO DAILY 07/05/18 09/08/19 Unknown History Diltiazem HCl [Cartia Xt] 1 cap PO BID 09/08/19 09/08/19 Unknown History - History of Present Illness-ABD Nature of Presenting Problems: 74 y/o male with history of gastric ulcer, hypertension, and a-fib on Xarelto presents to the ED with complaint of nausea, vomiting X 3, abdominal pain/pressure 7-8/10, and bloating since 1400 today. He states last bowel movement today which was mildly loose but he has been taking Metamucil. Denies chest pain and SOB. NKDA. Abdominal Pain Onset Location: reports: epigastric Pain Radiation: reports: no radiation Quality of Pain: reports: pressure (7-8/10) Onset/Duration: reports: this afternoon Timing: reports: still present Activities at Onset: reports: light activity Associated Symptoms: reports: nausea, vomiting. denies: fever/chills Last BM: other (today) Dark Stools Present?: reports: none noticed Rectal Bleeding: reports: none Emesis Description: denies: red blood, blood-streaked Recently seen or treated by another doctor?: No Review of Systems - Adult - REVIEW OF SYSTEMS - ADULT Constitutional: denies: chills, fever, weight loss Eyes: reports: no symptoms reported Ears, Nose, Mouth & Throat: reports: no symptoms reported Cardiovascular: reports: irregular heart rate (chronic a-fib). denies: chest pain, palpitations Respiratory: denies: hemoptysis, shortness of breath, wheezing Gastrointestinal: reports: abdominal pain (epigastric), nausea, vomiting. denies: constipation, diarrhea Genitourinary: reports: no symptoms reported Musculoskeletal: reports: no symptoms reported Integumentary: reports: no symptoms reported Neurological: reports: no symptoms reported Psychiatric: reports: no symptoms reported Endocrine: reports: no symptoms reported Hematologic/Lymphatic: reports: no symptoms reported Allergic/Immunologic: reports: no symptoms reported All Other Systems: Reviewed and Negative Past History - Adult - PAST MEDICAL HISTORY-ADULT Review of Records: reports: Old Records Reviewed, Nursing Assessment Review, Medications Reviewed Major Childhood Illnesses: reports: denies history Cardiovascular: reports: A-Fib, HTN, hyperlipidemia Respiratory: reports: denies history Gastrointestinal: reports: GERD Obstetrical/Gynecological: reports: denies history Genitourinary: reports: denies history Musculoskeletal: reports: denies history Neurological: reports: denies history Endocrine/Immune: reports: denies history Other Conditions: reports: denies history - PRIOR SURGERIES/PROCEDURES Surgical/Procedure History: reports: recent surgery, joint replacement (R knee) - IMMUNIZATION STATUS Childhood Immunizations: See Nurse Assessment Flu Vaccine: See Nurse Assessment - FAMILY HISTORY Family History: reviewed, not pertinent - SOCIAL HISTORY Smoking: denies Substance Use: denies Physical Exam-General - PHYSICAL EXAM-ADULT Initial Vital Signs Reviewed: Yes - CONSTITUTIONAL General Appearance: alert, mild distress - EYES Eyes: PERRL/EOMI - HEAD, EARS, NOSE, MOUTH & THROAT HENMT: normocephalic/atraumatic - NECK Neck: non-tender, full range of motion, supple - RESPIRATORY Respiratory: lungs clear, normal breath sounds. negative: rales, rhonchi, wheezing - CARDIOVASCULAR Cardiovascular: other (mildly irregular rate 88 BPM) - GASTROINTESTINAL (ABDOMEN) Abdominal Exam: soft, tenderness (mild epigastrum) - MUSCULOSKELETAL Extremity: normal gait - SKIN Integumentary: normal color, warm/dry. negative: diaphoresis - NEUROLOGIC Neurologic: grossly normal - PSYCHIATRIC Psych/Mental Status: normal mood/affect, normal thought content, normal thought process Progress - PLAN OF CARE/RESULTS Progress/Plan/Lab Results: Vital Signs - 8 hr 09/08/19 20:50 Temperature 97.3 F L Pulse Rate 74 Respiratory Rate 20 Blood Pressure 156/88 O2 Sat by Pulse Oximetry 96 Result Diagrams: 09/08/19 22:05 09/08/19 22:05 - REASSESSMENT Reassessment #1 Time Reassessed: 23:07 Status: improving (PAIN LEVEL LOW EPIGASTRIUM DOWN TO 5/10, NO NAUSEA/VOMIT NOW OR HERE. NOTE LEUKOCYTOSIS.: CT ABD W/) - EKG 1 Time of EKG reading by physician:: 22:10 EKG Read and Signed by:: Curt Hart EKG Interpretation (*Must complete 3 of following elements*): Abnormal Rate: 79 Rhythm: a-fib [place]: normal Comments: nonspecific T wave abnormality - XRAY 1 XRAY Study: Chest, Abdomen Impression: See EMR Report (Unremarkable chest. Pockets of distended small bowel gas. No free air. Per Dr. Curt Hart, ED) - CT/MRI 1 CT Study: Abdomen, Pelvis Impression: See EMR Report (1- NONSPECIFIC FLUID SMALL BOWEL 2-COLONIC WALL THICKENING) - CONSULTS/PCP/HOSPITALIST Notification #1 *Consult/PCP/Hospitalist*: DR NGUYEN Time Discussed: 00:38 Consult Disposition: Admit Departure - Departure Date of Disposition Decision: 09/09/19 Time of Disposition Decision: 00:39 DIAGNOSIS: Colitis, Ileus Abdominal pain Qualifiers: Abdominal location: epigastric Qualified Code(s): R10.13 - Epigastric pain Leukocytosis Qualifiers: Leukocytosis type: unspecified Qualified Code(s): D72.829 - Elevated white blood cell count, unspecified Disposition: ADMITTED INPATIENT 09 Certified Medical Emergency: Emergent Condition: Stable Referrals and Follow-Ups: None,PCP [Primary Care Provider] - - Critical Care Note This patient required my direct & personal management of CC.: No Attestation - Physician/ ISAIAH Attestation Patient care was provided by Advanced Practice Provider:: No The physician spent face to face time with patient:: Yes Advanced Practice Provider documentation review:: Supervising physician onsite and consulted in the evaluation and care of this patient. The physician did have a face to face encounter with the patient. This chart was documented by the indicated scribe, (Rowena Terry, Jose Angelibdevika) and accurately reflects the services I performed and decisions made by me, Curt Hart MD, as attested by the provider's signature.
[2019-09-09] MEDS ORDERED: FLAGYL 500 MG/NS 500 MG/100 ML IVPB IV ONE (00:46)
[2019-09-09] MEDS ORDERED: CIPRO 400 MG/D5W 400 MG/200 ML IVPB IV ONE (00:46)
--- NOTE | 2019-09-09 01:11 | EKG Report ---
Test Performed on : 09/08/2019 10:10:38 PM Test Reason : EPIGASTRIC PAIN Blood Pressure : / mmHG Vent. Rate : 079 BPM Atrial Rate : 144 BPM P-R Int : 000 ms QRS Dur : 092 ms QT Int : 376 ms P-R-T Axes : 000 056 003 degrees QTc Int : 431 ms Atrial fibrillation. Nonspecific T wave abnormality Abnormal ECG When compared with ECG of 28-MAY-2017 09:27, No significant change was found Unconfirmed Result
[2019-09-09] MEDS ORDERED: NS 1,000 ML IV ONE (01:28)
[2019-09-09] MEDS: MORPHINE IV PRN (01:51)
[2019-09-09] MEDS: ZOFRAN IV PRN (04:09)
--- NOTE | 2019-09-09 06:04 | Diag Imaging Result Doc PS360 ---
EXAM: FLAT/UPRIGHT ABD/1 VIEW CHEST HISTORY: EPIGASTRIC PAIN TECHNIQUE: Three views COMPARISON: 01/22/2019 FINDINGS: The lungs are well expanded and clear. No pneumonia. No pulmonary edema. No free air beneath the diaphragm. There are air distended loops of small bowel with air-fluid levels. No organomegaly. No foreign body. No abnormal abdominal calcifications. IMPRESSION: Suspect a small bowel obstruction. Electronically signed by Tyler Humphrey 09/09/2019 6:02 AM
--- NOTE | 2019-09-09 06:25 | Diag Imaging Result Doc PS360 ---
EXAM: CT ABD/PELVIS W/IV CONT ONLY HISTORY: ABD PAIN, VOMITING, LEUKOCYTOSIS TECHNIQUE: CT abdomen and pelvis with intravenous contrast, but without oral contrast. COMPARISON: None. FINDINGS: The heart is enlarged There are multiple cysts scattered throughout the liver. No calcified gallstones or adjacent inflammation. No splenomegaly. Normal pancreas and adrenal glands. There are several tiny renal cysts. No hydronephrosis. No aortic aneurysm. 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 There are distended loops of small bowel with air-fluid levels. The distal small bowel loops are not dilated. Multiple diverticula in the distal colon. The urinary bladder is distended and appears normal. The prostate measures 5.0 cm in diameter. There is a fat filled left inguinal hernia. Likely prior repair to the right. IMPRESSION: 1.Distal small bowel obstruction 2.Hepatic and renal cysts 3.Fat filled left inguinal hernia 4.Colonic diverticulosis 5.Cardiomegaly 6.A preliminary report was given at 11:55 PM on 12/08/2019 This exam was performed using automated exposure control, adjustment of mA or kV according to patient size, and/or use of iterative reconstruction technique. Electronically signed by Tyler Humphrey 09/09/2019 6:23 AM
[2019-09-09 08:37] LABS: HEMATOCRIT 47.8 % (42.0-52.0); HEMOGLOBIN 15.9 g/dL (14.0-18.0); MCH 30.1 PG (27-31); MCHC 33.3 g/dL (33-37); MCV 90.5 FL (81-99); MPV 10.7 FL (7.4-10.4); RBC 5.28 XMIL (4.7-6.1); RDW 15.2 % (11.5-14.5); WBC 11.93 X1000 (4.8-10.8)
[2019-09-09 08:40] LABS: AGAP 13; ALKALINE PHOSPHATASE 68 U/L (32-122); BUN 11 mg/dL (8-22); CALCIUM 9.1 mg/dL (8.8-10.2); CHLORIDE 100 mmol/L (98-107); COSMO 280; CREATININE 0.8 mg/dL (0.7-1.2); ESTIMATED GFR > 60; GLUCOSE 126 mg/dL (70-104); GOT 15 U/L (10-34); GPT 13 U/L (10-44); MAGNESIUM 2.2 mg/dL (1.5-2.7); POTASSIUM 3.7 mmol/L (3.5-5.1); SODIUM 140 mmol/L (136-145); TCO2 27 mmol/L (25-35); TOTAL PROTEIN 7.1 g/dL (6.3-8.3)
[2019-09-09] MEDS: PROTONIX IV SCH (09:04)
[2019-09-09] MEDS: SODIUM CHLORIDE 0.9% INJ SCH (09:05)
--- NOTE | 2019-09-09 09:41 | Diag Imaging Result Doc PS360 ---
EXAM: KUB ABDOMEN HISTORY: SBO TECHNIQUE: Two views COMPARISON: 09/08/2019 FINDINGS: There continue to be air distended loops of small bowel. There is stool is present in the proximal and mid colon. No organomegaly. Intravenous contrast fills the urinary bladder. IMPRESSION: Partial small bowel obstruction Electronically signed by Tyler Humphrey 09/09/2019 9:38 AM
--- NOTE | 2019-09-09 10:24 | HISTORY AND PHYSICAL ---
PRIMARY CARE PHYSICIAN: Dr. Tom Whitmore. CHIEF COMPLAINT: Epigastric abdominal pain, nausea, and several episodes of vomiting that began yesterday and progressively worsened. HISTORY OF PRESENTING ILLNESS: This is a 74-year-old, male, who presents to [facility] ER with complaints of epigastric abdominal pain, nausea, and several episodes of vomiting that began yesterday. He also states that he had a bowel movement yesterday, but was mildly loose, and that he had issues with constipation, and had taken some Metamucil. Workup showed an abdomen x-ray with a suspected small-bowel obstruction. CT of the abdomen and pelvis showed a distal small-bowel obstruction. His white blood cell count was 15.26, so he was admitted for further evaluation and treatment. PAST MEDICAL HISTORY: Atrial fibrillation, hypertension, hyperlipidemia, gastric ulcer, and GERD. PAST SURGICAL HISTORY: Right knee surgery and a hernia repair. FAMILY HISTORY: Reviewed and noncontributory. SOCIAL HISTORY: Currently lives with family. Denied any tobacco, alcohol, or illicit drug use. ALLERGIES: He has no known drug allergies. HOME MEDICATIONS: Home medications will all be held at this time as he is n.p.o., but we will obtain a list, reconcile, review, and restart when appropriate. IMAGING AND LABORATORY DATA: Laboratory data showed a white blood cell count of 15.26, hemoglobin 17.1, hematocrit 49.9, platelets 182,000. Sodium 138, potassium 3.8, chloride 96, CO2 of 28, BUN of 10, creatinine 0.8, glucose 152. Magnesium 2.2. Urinalysis was negative. Abdomen x-ray showed a suspected small-bowel obstruction. CT of the abdomen and pelvis showed an impression of a distal small-bowel obstruction, a fat-filled left inguinal hernia, hepatic and renal cysts, colonic diverticulosis, and cardiomegaly. REVIEW OF SYSTEMS: He denied any fever, chills, blurred vision, dizziness, chest pain, coughing, shortness of breath. He had epigastric abdominal pain, nausea, vomiting. Positive for constipation. Denies any diarrhea or burning or hurting with urination. PHYSICAL EXAMINATION: VITAL SIGNS: On arrival, he had a temperature of 97.3 degrees, pulse 74, respirations 20, blood pressure 156/88, saturating 96% on room air. GENERAL: This is a 74-year-old, male, who is lying in the bed and answers questions appropriately. HEENT: Normocephalic, atraumatic. Normal ENT inspection. Oropharynx and nares are clear. Eyes: Pupils are equal, round, and reactive to light and accommodation. Extraocular movements are intact. NECK: Normal inspection. Normal range of motion. LUNGS: Clear to auscultation bilaterally with equal lung expansion and chest wall movement. HEART: Regular rate and rhythm. No murmurs, rubs, or gallops. ABDOMEN: Soft. There was some mild tenderness to the epigastric area. Bowel sounds are present x4 quadrants. MUSCULOSKELETAL: He has 5/5 strength x4 extremities. NEUROLOGICAL: The cranial nerves II through XII appear grossly intact. ASSESSMENT: 1. Epigastric abdominal pain. 2. Small-bowel obstruction. 3. Leukocytosis. 4. Hypertension. 5. Atrial fibrillation, rate controlled currently. PLAN: He was admitted to the medical unit, placed on telemetry, held n.p.o. He has morphine 2 mg IV every 2 hours p.r.n., Zofran 4 mg IV every 4 hours p.r.n., Protonix 40 mg IV every 24 hours. We will recheck a CBC and BMP in the a.m. Further orders after seen by attending. Dictated by JULIA Mckoy for Tom Whitmore MD cc: JULIA Mckoy MD
[2019-09-09] MEDS ORDERED: LANOXIN IV SCH (17:15)
[2019-09-09] MEDS: LOVENOX SUBQ SCH (17:40)
[2019-09-09] MEDS: CARDIZEM CD PO SCH (20:16)
--- NOTE | 2019-09-10 03:32 | HISTORY AND PHYSICAL ---
CHIEF COMPLAINT: Abdominal pain. ADDENDUM: Patient seen and examined by myself. Full note dictated and discussed with nurse practitioner. Patient presented to the hospital with abdominal pain, nausea, vomiting, bloating. CT demonstrated a distal small-bowel obstruction with a left inguinal hernia. Currently, he notes that he is feeling better. His nausea is improving. We are going to continue IV fluids. Check KUB. Further orders as needed. cc: Tom Whitmore MD
[2019-09-10 04:53] LABS: BASO# 0.02 X1000 (0.0-0.2); BASO% 0.2 % (0.0-0.8); EOS# 0.01 X1000 (0.0-0.7); EOS% 0.1 % (0.0-10.0); HEMATOCRIT 48.3 % (42.0-52.0); HEMOGLOBIN 16.1 g/dL (14.0-18.0); IMM GRAN# 0.01 X1000 (0.0-0.04); IMM GRAN% 0.1 % (0.0-0.5); LYMPH# 1.23 X1000 (1.2-3.4); LYMPH% 11.6 % (20.5-51.1); MCH 30.5 PG (27-31); MCHC 33.3 g/dL (33-37); MCV 91.5 FL (81-99); MONO# 1.14 X1000 (0.11-0.59); MONO% 10.8 % (1.7-9.3); MPV 10.5 FL (7.4-10.4); NEUT# 8.18 X1000 (1.4-6.5); NEUT% 77.2 % (42.2-75.2); PLT 177 X1000 (130-400); RBC 5.28 XMIL (4.7-6.1); RDW 15.4 % (11.5-14.5); WBC 10.59 X1000 (4.8-10.8)
[2019-09-10 05:11] LABS: AGAP 13; BUN 13 mg/dL (8-22); CHLORIDE 101 mmol/L (98-107); COSMO 281; CREATININE 0.9 mg/dL (0.7-1.2); ESTIMATED GFR > 60; GLUCOSE 92 mg/dL (70-104); POTASSIUM 3.6 mmol/L (3.5-5.1); SODIUM 141 mmol/L (136-145); TCO2 27 mmol/L (25-35)
--- NOTE | 2019-09-10 07:42 | Diag Imaging Result Doc PS360 ---
EXAM: KUB ABDOMEN - 09/10/2019 HISTORY: SBO TECHNIQUE: KUB abdomen COMPARISON: 09/08/2018 FINDINGS: There has been some interval decrease in gaseous small bowel distention. There is gas visible in nondistended colon and rectum. IMPRESSION: Some decrease in gaseous small bowel distention. Electronically signed by Alberto Hanson 09/10/2019 7:40 AM
[2019-09-10] MEDS: PROTONIX IV SCH (08:59)
[2019-09-10] MEDS: LANOXIN PO SCH (08:59)
[2019-09-10] MEDS: SODIUM CHLORIDE 0.9% INJ SCH (08:59)
[2019-09-10] MEDS: CARDIZEM CD PO SCH ×2 (09:00→21:10)
--- NOTE | 2019-09-10 13:41 | PROGRESS NOTE ---
DATE: 09/10/2019 SUBJECTIVE: The patient reports feeling fine. He is passing gas but not bowel movement yet. He is tolerating a clear liquid diet well. OBJECTIVE: Vital Signs: Temperature 98.5 degrees, heart rate 81, respiratory rate 20, blood pressure 136/91, O2 saturation 98% on room air. General: This is a 74-year-old male, lying in bed, in no acute distress. Cardiovascular: S1, S2 heard. No murmurs, gallops, or rubs. Regular rate and rhythm. Respiratory: Clear bilaterally to auscultation. No work of breathing. Not using accessory muscles. Abdomen: Soft. Nontender to palpation. Bowel sounds present. No organomegaly. Extremities: No clubbing, cyanosis, or edema. Peripheral pulses present in both legs. Abdomen: Soft, nontender to palpation. A little bit distended. Bowel sounds present, hyperactive. No organomegaly noted. Extremities: No clubbing, cyanosis, or edema. Peripheral pulses present in both legs. Neurological: Patient is alert and oriented x3. Moves 4 extremities. LABORATORY DATA: White cell count is 10.59, hemoglobin is 16.1, hematocrit 48.3, platelets 177,000 with normal BMP. ASSESSMENT AND PLAN: 1. Small-bowel obstruction. 2. Hypertension. 3. Atrial fibrillation, rate controlled. PLAN: Patient has been admitted for small-bowel obstruction. The patient is passing gas. The x- ray from today shows improvement and some decrease in the cases of small bowel distention, so we are going to continue with IV fluids. We will continue with clear liquid diet. Once this patient is able to tolerate normal diet and having bowel movements, the patient is going to be discharged. White cell count is back to normal. We will continue with the same management. cc: Sebastian Hinds MD
[2019-09-10] MEDS: MIRALAX PO SCH (13:57)
[2019-09-10] MEDS: LOVENOX SUBQ SCH (17:30)
[2019-09-11] MEDS: MORPHINE IV PRN (01:55)
[2019-09-11] MEDS: ZOFRAN IV PRN (01:56)
[2019-09-11 05:25] LABS: BASO# 0.02 X1000 (0.0-0.2); BASO% 0.2 % (0.0-0.8); EOS# 0.04 X1000 (0.0-0.7); EOS% 0.4 % (0.0-10.0); HEMATOCRIT 48.5 % (42.0-52.0); HEMOGLOBIN 16.3 g/dL (14.0-18.0); IMM GRAN# 0.02 X1000 (0.0-0.04); IMM GRAN% 0.2 % (0.0-0.5); LYMPH# 0.96 X1000 (1.2-3.4); LYMPH% 10.3 % (20.5-51.1); MCH 30.4 PG (27-31); MCHC 33.6 g/dL (33-37); MCV 90.3 FL (81-99); MONO# 0.94 X1000 (0.11-0.59); MONO% 10.1 % (1.7-9.3); MPV 10.5 FL (7.4-10.4); NEUT# 7.31 X1000 (1.4-6.5); NEUT% 78.8 % (42.2-75.2); PLT 166 X1000 (130-400); RBC 5.37 XMIL (4.7-6.1); RDW 15.1 % (11.5-14.5); WBC 9.29 X1000 (4.8-10.8)
[2019-09-11 05:36] LABS: AGAP 12; ALBUMIN 3.8 g/dL (3.5-5.0); BUN 9 mg/dL (8-22); CALCIUM 9.1 mg/dL (8.8-10.2); CHLORIDE 99 mmol/L (98-107); COSMO 275; CREATININE 0.8 mg/dL (0.7-1.2); ESTIMATED GFR > 60; GLUCOSE 106 mg/dL (70-104); PHOSPHORUS 2.9 mg/dL (2.7-4.5); POTASSIUM 3.5 mmol/L (3.5-5.1); SODIUM 138 mmol/L (136-145); TCO2 28 mmol/L (25-35)
--- NOTE | 2019-09-11 08:01 | Diag Imaging Result Doc PS360 ---
EXAM: ABDOMEN FLAT/UPRIGHT 09/11/2019 HISTORY: pain TECHNIQUE: Flat and upright abdomen COMMENT: There is a fair amount of stool in the right colon. There is gas in the rectosigmoid colon. There is no evidence for organomegaly or mass. IMPRESSION: Mild constipation. Electronically signed by Chase Coyne 09/11/2019 7:58 AM
[2019-09-11 08:48] VITALS: BP 151/97
[2019-09-11] MEDS: MIRALAX PO SCH (08:50)
[2019-09-11] MEDS: LANOXIN PO SCH (08:52)
[2019-09-11] MEDS: PROTONIX IV SCH (08:53)
[2019-09-11] MEDS: CARDIZEM CD PO SCH (08:53)
--- NOTE | 2019-09-11 16:20 | DISCHARGE SUMMARY ---
ADMISSION DATE: 09/09/2019 DISCHARGE DATE: 09/11/2019 PRIMARY CARE PHYSICIAN: Dr. Tom Whitmore. ADMISSION DIAGNOSES: 1. Epigastric abdominal pain. 2. Small bowel obstruction. 3. Leukocytosis. 4. Hypertension. 5. Atrial fibrillation, rate controlled currently. DISCHARGE DIAGNOSES: 1. Small bowel obstruction, resolved. 2. Hypertension. 3. Atrial fibrillation, rate controlled. SUMMARY OF FINDINGS: This is a 74-year-old male who presented to the emergency room with complaints of epigastric abdominal pain, nausea, and several episodes of vomiting that began on the day prior to arrival. States he had a bowel movement the day prior to arrival, but was mildly loose, that he does have issues with constipation, had taken Metamucil. His abdomen x-ray showed suspected small-bowel obstruction, so we obtained a CT that showed a distal small-bowel obstruction. He was admitted, held n.p.o. initially, given IV hydration. We rechecked an abdomen x-ray on 09/10/2019 that showed some decrease in gaseous small bowel distention and repeated on 09/11/2019 that showed mild constipation. He was receiving MiraLAX 17 g p.o. daily. His abdomen pain has resolved, and it is felt that he can safely be discharged home on the following medications. He will continue his: 1. Diltiazem 240 mg p.o. b.i.d. 2. Digoxin 125 mcg p.o. daily. 3. Hydrochlorothiazide 12.5 mg p.o. daily. 4. Losartan 100 mg p.o. daily. 5. Metoprolol 50 mg p.o. daily. 6. Xarelto 20 mg p.o. at bedtime. FOLLOWUP: He will need to follow up with his primary care physician in the next 1 to 2 weeks and call their office for an appointment. TIME SPENT: 35 minute discharge. Dictated by JULIA Mckoy for Sebastian Hinds MD Addendum: Patient seen and examined by myself. Agree with JULIA note. It reflects my assessment and plan. Patient is being discharged from hospital in stable condition. Will be seen by PCP in a week. cc: JULIA Mckoy MD Gregory S. Cheatham, MD [facility] MEDICAL CENTERMargie
== END 2019-09-11 14:22 | disposition home or self-care (01) | DRG 389 ==
LOC: P.MEDSURG 20:48 → P.ED 20:48 → OBSVTOIN 09-09 00:56 → SUATTDRO 09-09 00:56
PROVIDERS: ATTEND Internal Medicine